=== PATIENT | male | born 1995 | race Caucasian/White ===

== ENCOUNTER 2017-07-11 15:48 | Emergency (ER) | payer BC ==
[~2017-07-11] VITALS: Ht 177.8 cm; Wt 65.2 kg
[2017-07-11 16:23] VITALS: TEMP 37.2; Ht 177.8 cm; Wt 65.2 kg
[2017-07-11] MEDS ORDERED: XYLOCAINE 1%/SOD BICARB 20 ML VIAL INFIL ONE (16:30)
[2017-07-11] MEDS ORDERED: MOME110A INH (16:43)
[2017-07-11] MEDS ORDERED: TRET0.1C42 TOP (16:43)
[2017-07-11] MEDS ORDERED: CLIN1LOT5 TOP (16:43)
[2017-07-11 18:05] VITALS: BP 144/73; PULSE 80; O2SAT 97
--- NOTE | 2017-07-12 01:13 | EMERGENCY ROOM VISIT NOTE ---
History First contact with patient: 16:23 Chief Complaint: LACERATION/CUT (SUT/DERMABOND) Stated Complaint: LACERATION TO RT HAND, 2ND DIGIT Nursing Triage Summary: patient to ED via triage for laceration to right second finger, states "a wallisian army knife closed on it" History of Present Illness The patient is a 22 year old male who presents to the Emergency Room with complaints of a laceration to his right index finger. The patient was attempting to open a utility knife with his was army knife. As he was attempting to open the blade, it snapped back onto the finger, causing a laceration. The patient denies any significant pain, paresthesias/numbness or loss of function of the finger. Tetanus immunization is up-to-date. The patient is [id number]. Review of Systems 6 system review was performed and was negative except for pertinent positives and negatives as indicated in history of present illness Past Medical/Surgical History Medical Problems: (1) No significant past medical history Surgical Problems: (1) No history of previous surgery Family History Unremarkable Social History Smoking Status: Never Smoker Alcohol Use: none Marital Status: single Occupation Status: [employer] student Current/Historical Medications Scheduled Clindamycin Phosphate (Topical (Clindamycin Phosphate), 1 APPLN TOP BID Mometasone Furoate (Inhalation (Asmanex 30 Metered Doses), 1 PUFF INH UD Tretinoin (Tretinoin), 1 APPLN TOP HS Physical Exam Vital Signs Date Time Temp Pulse Resp B/P (MAP) Pulse Ox O2 Delivery O2 Flow Rate FiO2 07/11/17 18:05 80 18 144/73 97 07/11/17 16:23 37.2 81 20 146/82 98 Room Air Physical Exam CONSTITUTIONAL: Healthy and well nourished. Alert and oriented X 3 with positive affect. Patient does not appear in any acute distress. HEENT: Normocephalic, atraumatic. Pupils equal, round and reactive. NECK: Full active range of motion without discomfort. MUSCULOSKELETAL: Examination of the right index finger shows a 1 cm laceration across the dorsal PIP joint. The patient is able to flex and extend the finger. Collateral ligaments are intact. Capillary refill is less than 2 seconds. INTEGUMENTARY: No rash or other significant dermatologic conditions noted. NEUROLOGIC: Right index fingertip is sensory intact. Medical Decision & Procedures Procedure Laceration repair was performed under local anesthesia after receiving verbal consent from the patient. Using buffered 1% lidocaine without epinephrine, good local anesthesia was administered. The wound was then peripherally cleansed with iodine, then irrigated with normal saline. Exploration of the wound does not show any recent exposure of the extensor tendons, vasculature, digital nerves or joint capsule. The wound was then approximated using 5-0 nylon simple interrupted sutures. A bacitracin dressing and metal splint were applied. ED Course Patient history and physical exam were performed. Nurse's notes were reviewed. Vital signs were reviewed and normal. Wound exploration and laceration repair were performed under local anesthesia. The patient was provided a metal splint to avoid any undue stress on the wound. He was provided additional verbal and written wound care instructions. Ice and elevation for swelling. Ibuprofen or Tylenol as needed for pain. Suture removal in 12-14 days, or seek reevaluation sooner for any signs of wound infection. The patient was happy with plan of care, voiced understanding of all discharge instructions, and denied any pain at the conclusion of my exam. Medical Decision Blood Pressure Screening Patient's blood pressure: Normal blood pressure Impression Primary Impression: Laceration of right index finger Departure Information Referrals No Doctor, Assigned (PCP) Patient Instructions My [facility] Problem Qualifiers Primary Impression: Laceration of right index finger Encounter type: initial encounter Damage to nail status: without damage Foreign body presence: without foreign body Qualified Codes: S61.210A - Laceration without foreign body of right index finger without damage to nail, initial encounter
== END 2017-07-11 18:07 | disposition home or self-care (01) ==
LOC: C.EDB 15:50 → C.EDD 18:07
DX: S61.210A Laceration without foreign body of right index finger without damage to nail, initial encounter (principal); W26.0XXA Contact with knife, initial encounter